=== PATIENT | male | born 1960 | race Caucasian/White ===

== ENCOUNTER → 2022-09-24 | Outpatient (CLI) | payer OTHER ==
[~2022-09-24] MED LIST: DIAZ5 PO; OXYACE5T PO
[2022-09-24 14:53] LABS: BASOPHILS ABSOLUTE AUTO 0.04 K/mm3 (0.00-0.23); BASOPHILS PERCENT AUTO 1 % (0-2); EOSINOPHILS ABSOLUTE AUTO 2.65 K/mm3 (0.00-0.68); EOSINOPHILS PERCENT AUTO 34 % (0-6); Hematocrit 42.6 % (37.0-53.0); Hemoglobin 14.7 g/dL (13.5-17.5); IMMATURE GRAN ABSOLUTE AUTO 0.02 K/mm3 (0.00-0.10); IMMATURE GRAN PERCENT AUTO 0 % (0-1); LYMPHOCYTES ABSOLUTE AUTO 2.14 K/mm3 (0.84-5.20); LYMPHOCYTES PERCENT AUTO 27 % (21-46); MONOCYTES ABSOLUTE AUTO 0.35 K/mm3 (0.16-1.47); MONOCYTES PERCENT AUTO 4 % (4-13); Mean Corpuscular HGB 32.6 pg (26.0-34.0); Mean Corpuscular HGB Conc 34.5 g/dL (31.5-36.5); Mean Corpuscular Volume 95 fL (80-100); Mean Platelet Volume 8.9 fL (9.1-12.4); NEUTROPHILS ABSOLUTE AUTO 2.71 K/mm3 (1.96-9.15); NEUTROPHILS PERCENT AUTO 34 % (41-73); Platelet Count 293 K/mm3 (150-400); RDW Standard Deviation 41.8 fL (35.1-46.3); Red Blood Cell Count 4.51 M/mm3 (4.30-5.90); White Blood Cell Count 7.91 K/mm3 (4.00-11.30)
[2022-09-24 15:05] LABS: Albumin, Blood 3.9 g/dL (3.4-5.0); Bilirubin, Total 0.3 mg/dL (0.1-1.0); Bun/Creatinine Ratio 17.4 (12.0-20.0); Calcium, Blood 9.6 mg/dL (8.5-10.1); Creatinine, Blood 0.92 mg/dL (0.60-1.20); Globulin, Blood 3.9 g/dL (2.2-4.0); Potassium, Blood 4.2 mmol/L (3.5-5.5); Total Protein, Blood 7.8 g/dL (6.4-8.2)
== END | disposition home or self-care (01) ==
LOC: LAB SHORT 11:50 → LAB 11:50
PROVIDERS: Family Medicine
DX: F31.9 Bipolar disorder, unspecified (principal)
CPT/HCPCS: 80053; 85025

== ENCOUNTER 2023-07-16 09:24 | Emergency (ER) | payer OTHER ==
[~2023-07-16] VITALS: Ht 177.8 cm; Wt 81.7 kg
[2023-07-16] MEDS ORDERED: ATROVENT HFA12.9 GM INH (09:59)
[2023-07-16] MEDS ORDERED: FLUTICASONE-SA1 EA11 INH (10:00)
[2023-07-16] MEDS ORDERED: METPHE20 PO (10:00)
[2023-07-16] MEDS ORDERED: LAMOTRIGINE100 M1 PO (10:00)
[2023-07-16] MEDS ORDERED: LOSA50 PO (10:00)
[2023-07-16] MEDS ORDERED: Ativan1 MG PO (10:00)
[2023-07-16 10:11] LABS: BASOPHILS PERCENT AUTO 0 % (0-2); EOSINOPHILS ABSOLUTE AUTO 0.15 K/mm3 (0.00-0.68); EOSINOPHILS PERCENT AUTO 4 % (0-6); Hematocrit 38.1 % (37.0-53.0); Hemoglobin 13.2 g/dL (13.5-17.5); IMMATURE GRAN ABSOLUTE AUTO 0.02 K/mm3 (0.00-0.10); IMMATURE GRAN PERCENT AUTO 1 % (0-1); LYMPHOCYTES ABSOLUTE AUTO 1.53 K/mm3 (0.84-5.20); LYMPHOCYTES PERCENT AUTO 39 % (21-46); MONOCYTES PERCENT AUTO 10 % (4-13); Mean Corpuscular HGB 32.8 pg (26.0-34.0); Mean Corpuscular HGB Conc 34.6 g/dL (31.5-36.5); Mean Corpuscular Volume 95 fL (80-100); Mean Platelet Volume 8.8 fL (9.1-12.4); NEUTROPHILS ABSOLUTE AUTO 1.79 K/mm3 (1.96-9.15); NEUTROPHILS PERCENT AUTO 46 % (41-73); Platelet Count 204 K/mm3 (150-400); RDW Coefficient Variation 12.1 % (11.7-14.2); RDW Standard Deviation 42.5 fL (35.1-46.3); Red Blood Cell Count 4.02 M/mm3 (4.30-5.90); White Blood Cell Count 3.89 K/mm3 (4.00-11.30)
[2023-07-16 10:25] LABS: Albumin, Blood 3.4 g/dL (3.4-5.0); Albumin/Globulin Ratio 0.8 (0.8-1.8); Bilirubin, Total 0.5 mg/dL (0.1-1.0); Calcium, Blood 8.6 mg/dL (8.5-10.1); Creatinine, Blood 1.2 mg/dL (0.60-1.20); Globulin, Blood 4.1 g/dL (2.2-4.0); Potassium, Blood 4.1 mmol/L (3.5-5.5); Total Protein, Blood 7.5 g/dL (6.4-8.2)
[2023-07-16 11:08] VITALS: BP 118/84
[2023-07-16] MEDS ORDERED: AEROECLIPSE II1 EACH INH (11:46)
[2023-07-16] MEDS ORDERED: IPRAT-ALBUT 0.5-3 ML INH (11:46)
[2023-07-16] MEDS ORDERED: PRED20 PO (11:46)
[2023-07-16] MEDS ORDERED: AZIT500 PO (11:46)
[2023-07-16 11:55] LABS: Influenza A, PCR NEGATIVE (NEGATIVE); Influenza B, PCR NEGATIVE (NEGATIVE); Resp Syncytial Virus, PCR NEGATIVE (NEGATIVE)
[2023-07-16 13:14] LABS: SARS-Cov-2 (COVID-19) PCR, MMC POSITIVE (NEGATIVE)
== END 2023-07-16 12:10 | disposition home or self-care (01) ==
LOC: ER 09:24
PROVIDERS: Family Medicine; Student in an Organized Health Care Education/Training Program
DX: J44.1 Chronic obstructive pulmonary disease with (acute) exacerbation (principal); Z79.899 Other long term (current) drug therapy; I10 Essential (primary) hypertension; Z91.041 Radiographic dye allergy status; Z87.891 Personal history of nicotine dependence
CPT/HCPCS: 0241U; 71046; 80053; 84484; 85025; 93005; 93010; 94640; 94664; 96365; 96375; 99284-25; J0456; J2930; J7050; J7512

== ENCOUNTER → 2023-10-14 | Outpatient (CLI) | payer OTHER ==
[~2023-10-14] MED LIST changes: +AEROECLIPSE II1 EACH INH; +ATROVENT HFA12.9 GM INH; +AZIT500 PO; +Ativan1 MG PO; +FLUTICASONE-SA1 EA11 INH; +IPRAT-ALBUT 0.5-3 ML INH; +LAMOTRIGINE100 M1 PO; +LOSA50 PO; +METPHE20 PO; +PRED20 PO
== END | disposition home or self-care (01) ==
LOC: LAB 08:06 → LAB SHORT 08:06
DX: R05.3 Chronic cough (principal); R93.89 Abnormal findings on diagnostic imaging of other specified body structures
CPT/HCPCS: 87070; 87205